=== PATIENT | male | born 1995 | race Caucasian/White ===

== ENCOUNTER 2018-12-11 14:00 | Emergency (ER) | payer OTHER ==
[2018-12-11 14:14] VITALS: BP 146/69
--- NOTE | 2018-12-11 15:37 | ED Physician Documentation ---
PD HPI OPHTHO - Stated complaint Stated Complaint: LT EYE PX - Chief complaint Chief Complaint: Heent - History obtained from History obtained from: Patient - History of Present Illness Timing - onset: Yesterday Timing - duration: Days (1) Timing - details: Still present Location: Left Quality / character: Itching, Burning Associated symptoms: Redness, Tearing, Photophobia, Headache. No: Discharge, FB sensation, Decreased vision, Loss of vision Contributing factors: Wears glasses, Wears contacts. No: Exposed to conjunctivitis, Recent URI, FB, UV light (welding etc), Chemical exposure, acid, Blunt trauma, Penetrating trauma Similar symptoms before: Has not had sx before Recently seen: Not recently seen - Additional information Additional information: Is a 23-year-old woke up yesterday morning his left eye was a little irritated. He looked in the mirror before putting his contact lens in and saw a "white freckle" on the left eye at about the 10 o'clock position he tried to flush it out and put his contact lens in them for the lens through the day but he noticed that he was having some light sensitivity so he took the lens out last night and has not put it back again. Today he has less pain in it. It is been tearing somewhat and its is light sensitive. No mucus drainage is not really itchy and has not been sick with a sore throat or stuffy nose. He thinks the appearance of the white freckle is actually improved somewhat. Review of Systems Constitutional: denies: Fever Eyes: reports: Photophobia, Irritation. denies: Loss of vision, Decreased vision, Discharge Nose: denies: Rhinorrhea / runny nose Throat: denies: Sore throat PD PAST MEDICAL HISTORY - Past Medical History Past Medical History: No - Past Surgical History Past Surgical History: No - Present Medications Home Medications: Ambulatory Orders Medication Instructions Recorded Confirmed Ciprofloxacin HCl [Ciloxan (Cipro 1 - 2 drops OP Q4H #5 ml 12/11/18 OPT)] - Allergies Allergies/Adverse Reactions: Allergies Allergy/AdvReac Type Severity Reaction Status Date / Time No Known Drug Allergies Allergy Verified 12/11/18 14:14 - Social History Does the pt smoke?: No Smoking Status: Never smoker ETOH Use: Beer Does the pt have substance abuse?: No - Immunizations Immunizations are current?: Yes PD ED PE NORMAL - Vitals Vital signs reviewed: Yes - General General: Alert and oriented X 3, No acute distress, Well developed/nourished - HEENT HEENT: Moist mucous membranes - Cardiac Cardiac: RRR - Respiratory Respiratory: No respiratory distress PD ED PE EXPANDED - Eyes Eyes: Visual acuity - see nn, PERRL, EOMI, Normal eyelids, Injected conj/sclera (There is some limbic conjunctivitis at about the 10 o'clock position otherwise clear.), Corneal ulcer (At the 10 o'clock position there is a very small white discoloration to the cornea. There are no dendrites.). No: Eyelid injury, Eyelid swelling, Eyelid erythema, Exudate, Subconj hemorrhage, Ant chamber cells/flare, Retinal hemorrhage Results - Vitals Vitals: Vital Signs - 24 hr 12/11/18 14:13 Temperature 36.2 C L Heart Rate 66 Respiratory 16 Rate Blood Pressure 146/69 H O2 Saturation 98 Oxygen O2 Source Room air PD MEDICAL DECISION MAKING - ED course Complexity details: d/w patient, d/w [facility] consultant ED course: Discussed with Dr Sharma, Ophthalomolgy, who agrees with treatment plan and will see patient in his office on Friday. Plan to place him on Cipro drops 4 times a day. He is not to put any contact lenses in his eyes. Follow-up with the cloth weigher on Friday. Departure - Departure Disposition: 01 Home, Self Care Clinical Impression: Conjunctivitis Qualifiers: Conjunctivitis type: acute Acute conjunctivitis type: unspecified Laterality: left Qualified Code(s): H10.32 - Unspecified acute conjunctivitis, left eye Corneal ulcer Qualifiers: Laterality: left Qualified Code(s): H16.002 - Unspecified corneal ulcer, left eye Condition: Good Instructions: ED Conjunctivitis Nonspecific Follow-Up: Alban Sharma MD [Provider Admit Priv/Credential] - Prescriptions: Ciprofloxacin HCl [Ciloxan (Cipro OPTH)] 1 - 2 drops OP Q4H #5 ml Comments: Do not put your contact lenses back and until cleared by the cloth weigher. Use the Cipro eyedrops 4 times a day. Avoid bright lights. The cloth weigher wants to see you in his office on Friday. You will need to call and schedule an appointment. Follow-up sooner if increasing Difficulty with pain, change in your vision or other problem arise.
== END 2018-12-11 17:22 | disposition home or self-care (01) ==
LOC: ED 14:00
DX: H10.32 Unspecified acute conjunctivitis, left eye (principal); H16.002 Unspecified corneal ulcer, left eye
CPT/HCPCS: 99282; 99284

== ENCOUNTER 2019-08-25 15:31 | Emergency (ER) | payer OTHER ==
[2019-08-25 15:53] VITALS: BP 136/74
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
== END 2019-08-25 17:01 | disposition home or self-care (01) ==
LOC: ED 15:31
DX: S90.112A Contusion of left great toe without damage to nail, initial encounter (principal); V28.0XXA Motorcycle driver injured in noncollision transport accident in nontraffic accident, initial encounter
CPT/HCPCS: 99283; 99284